=== PATIENT | male | born 1970 | race African-American/Black ===

== ENCOUNTER 2016-06-08 07:53 | Emergency (ER) | payer OTHER ==
--- NOTE | ~2016-06-08 | CR229 ---
[facility] A Service of [facility] & [facility] RADIOLOGY TEXT RESULTS PATIENT: LAMONT BURNHAM LOCATION: [facility] [address]336-61 : [birth year] UNIT #: [id number] AGE: [address]: Serene Espinoza MD SEX: M ORDER DR: [id number] [place], [place] [address] [id number] I MR#: [id number] Acc #: [id number] NAME: LAMONT BURNHAM : 1970 SEX: M STUDY DATE/TIME: 06/08/2016 8:18 UNIT: [facility] ROOM: [facility] STUDY DESCRIPTION: CR Shoulder Min 2 View Lt Attending Physician: Serene Espinoza M.D. Ordering Physician: Ed Doctor [id number] [facility] Primary Care Physician: Primary Care Physician No MEDICAL IMAGING REPORT This report is preliminary unless electronic signature is present EXAM Left shoulder 06/08/2016 INDICATIONS 46-year-old male with pain in the left wrist and elbow for 2 days. No known injury. TECHNIQUE 3 views of the left shoulder were performed. No comparisons. FINDINGS The examination is negative. No acute fracture, shoulder separation or dislocation. No significant degenerative change. IMPRESSION 1. Negative left shoulder Dictated by... Raji Mckeon M.D. THIS IS AN ELECTRONICALLY VERIFIED REPORT Raji Mckeon M.D. at 06/09/2016 7:19 AM Denae TD: 06/08/2016 14:56 JOB #: [id number] MEDICAL IMAGING REPORT COPY
--- NOTE | ~2016-06-08 | CR63 ---
[facility] A Service of [facility] RADIOLOGY TEXT RESULTS PATIENT: LAMONT BURNHAM LOCATION: [facility] [id number] : [birth year] UNIT #: [id number] AGE: [address]: Serene Espinoza MD SEX: M ORDER DR: [id number] [facility] [address] [facility] [place], [place] [address] [id number] I MR#: [id number] Acc #: [id number] NAME: LAMONT BURNHAM : 1970 SEX: M STUDY DATE/TIME: 06/08/2016 7:57 UNIT: [facility] ROOM: [id number] STUDY DESCRIPTION: CR Chest 2 View Attending Physician: Serene Espinoza M.D. Ordering Physician: Ed Doctor [id number] [facility] Primary Care Physician: Primary Care Physician No MEDICAL IMAGING REPORT This report is preliminary unless electronic signature is present EXAM Chest 2 views 06/08/2016 INDICATIONS Pain in the left ribs and elbow for 2 days. No known injury. Hypertension, short of breath. TECHNIQUE Two-view chest was performed and compared to 05/16/2013 FINDINGS Cardiac silhouette is within normal limits. Vascularity unremarkable. Lungs are clear. No pneumothorax. No effusion. IMPRESSION Negative chest Dictated by... Raji Mckeon M.D. THIS IS AN ELECTRONICALLY VERIFIED REPORT Raji Mckeon M.D. at 06/09/2016 7:19 AM HÉCTOR/regine TD: 06/08/2016 15:01 JOB #: [id number] MEDICAL IMAGING REPORT COPY
--- NOTE | ~2016-06-08 | CR90 ---
[facility] A Service of [facility] & [facility] RADIOLOGY TEXT RESULTS PATIENT: LAMONT BURNHAM LOCATION: [facility] [address]-14 : [birth year] UNIT #: [id number] AGE: [address]: Serene Espinoza MD SEX: M ORDER DR: [id number] [facility] [address] [place], [place] [address] [id number] I MR#: [id number] Acc #: [id number] NAME: LAMONT BURNHAM. : 1970 SEX: M STUDY DATE/TIME: 06/08/2016 7:58 UNIT: [facility] ROOM: [id number] STUDY DESCRIPTION: CR Elbow 2 View Lt Attending Physician: Serene Espinoza M.D. Ordering Physician: Ed Doctor [id number] [facility] Primary Care Physician: Primary Care Physician No MEDICAL IMAGING REPORT This report is preliminary unless electronic signature is present EXAM Left elbow 06/08/2016 INDICATIONS 46-year-old male with elbow pain for 2 days. No known injury. TECHNIQUE 2 views of the left elbow. No comparisons. FINDINGS AP and lateral examination of the elbow shows satisfactory articulation of the humerus with the proximal radius and ulna. There is no identifiable fracture, dislocation, joint effusion, or radiopaque foreign body in the soft tissues. IMPRESSION Normal elbow. Dictated by... Raji Mckeon M.D. THIS IS AN ELECTRONICALLY VERIFIED REPORT Raji Mckeon M.D. at 06/08/2016 5:33 PM Denae TD: 06/08/2016 14:48 JOB #: [id number] MEDICAL IMAGING REPORT COPY
[~2016-06-08 07:53] MED LIST: NAPROXEN PO
== END 2016-06-08 10:00 | disposition home or self-care (01) ==
LOC: CFTX 07:53
DX: S46.912A Strain of unspecified muscle, fascia and tendon at shoulder and upper arm level, left arm, initial encounter (principal); I10 Essential (primary) hypertension; M77.9 Enthesopathy, unspecified; F17.210 Nicotine dependence, cigarettes, uncomplicated
CPT/HCPCS: 71020; 73030; 73070; 99284